=== PATIENT | female | born 1945 | race Caucasian/White ===

== ENCOUNTER 2017-07-12 09:13 | Outpatient (CLI) | payer MEDICARE ==
--- NOTE | 2017-07-17 18:03 | Mammography Report ---
DIGITAL SCREENING MAMMOGRAM: 07/12/2017 CLINICAL INDICATION: A 72-year-old with history of bilateral implants for screening. COMPARISON: 05/2015, 01/2014, 06/2012, 06/2011, 01/2010. TECHNIQUE: Routine CC and MLO projections as well as bilateral implant displaced views were obtained of the breasts. FINDINGS: The breasts again demonstrate scattered fibroglandular densities bilaterally. Bilateral subpectoral saline implants are stable. A few coarse, typically benign calcifications are present. No suspicious masses, clustered microcalcifications, or regions of architectural distortion are identified. IMPRESSION: BENIGN FINDINGS. RECOMMENDATION: Routine annual screening unless otherwise clinically indicated. BI-RADS category 2 benign findings. STANDARD QUALIFYING STATEMENTS 1. This examination was reviewed with the aid of Computed-Aided Detection (CAD). 2. A negative or benign imaging report should not delay biopsy if clinically suspicious findings are present. Consider surgical consultation if warranted. More than 5% of cancers are not identified by imaging. 3. Dense breasts may obscure an underlying neoplasm. TD: 07/17/2017 15:51
== END 2017-07-12 09:14 | disposition home or self-care (01) ==
LOC: DI.S 09:13
PROVIDERS: ATTEND Registered Nurse
DX: Z12.31 Encounter for screening mammogram for malignant neoplasm of breast (principal)
CPT/HCPCS: 77067

== ENCOUNTER 2018-05-16 14:17 | Outpatient (CLI) | payer MEDICARE ==
--- NOTE | 2018-05-16 16:19 | XRAY Report ---
Reason: LOW BACK PAIN Procedure Date: 05/16/2018 Accession Number: [id number] / [id number] Procedure: XR - Lumbar Spine 2 View CPT Code: FULL RESULT: EXAM: LUMBOSACRAL SPINE RADIOGRAPHY EXAM DATE: 05/16/2018 02:31 PM. CLINICAL HISTORY: Low back pain. COMPARISONS: None. TECHNIQUE: 3 views. FINDINGS: Alignment: Normal. No spondylolisthesis or scoliosis. Bones: Five mrn-xrj-xskwwnz lumbar vertebral bodies are present. No lumbar fractures or bone lesions. Mild anterior wedging morphology superior endplate of T11. Disks: Mild disk space narrowing at L4-L5. Small anterior osteophytosis below the L3 level. Facets: No degenerative changes. Sacroiliac Joints: Unremarkable. Soft Tissues: Normal. The visualized bowel gas pattern is normal. IMPRESSION: Mild degenerative disk disease commensurate with age. No acute lumbar fracture. RADIA
== END 2018-05-16 14:18 | disposition home or self-care (01) ==
LOC: DI 14:17
PROVIDERS: ATTEND Registered Nurse
DX: M51.36 Other intervertebral disc degeneration, lumbar region (principal)
CPT/HCPCS: 72100

== ENCOUNTER 2018-08-06 10:55 | Outpatient (CLI) | payer MEDICARE ==
--- NOTE | 2018-08-06 15:04 | DEXA Report ---
Reason: UNSPECIFIED MENOPAUSAL AND PERIMENOPAUSAL DISORDER Procedure Date: 08/06/2018 Accession Number: [id number] / [id number] Procedure: DEX - Dexa Spine and/or Hip CPT Code: FULL RESULT: EXAM: Dexa Spine and/or Hip DATE: 08/06/2018 11:26 AM CLINICAL HISTORY: UNSPECIFIED MENOPAUSAL AND PERIMENOPAUSAL DISORDER TECHNIQUE: Dual energy x-ray absorptiometry (DXA) was performed on a [employer] System. Regions measured are the AP Spine, femoral neck, and if needed forearm. COMPARISON: None. In accordance with the International Society for Clinical Densitometry (ISCD) guidelines, data from previous exams may be reanalyzed using current recommendations and techniques. This is done to allow a more accurate basis for comparison with the current study. FINDINGS: The data for the lumbar spine is as follows: BMD (g/cm/cm) T-SCORE Z-SCORE REGION L1 0.927 -1.7 0.2 L2 0.945 -2.1 -0.2 L3 0.907 -2.4 -0.6 L4 1.088 -0.9 0.9 TOTAL 0.969 -1.8 0.1 NOTE: All evaluable vertebrae are used for classification The data for the hip is as follows: BMD (g/cm/cm) T-SCORE Z-SCORE REGION Neck 0.870 -1.2 0.7 TOTAL 0.753 -2.0 -0.3 NOTE: The femoral neck or total proximal femur, whichever is lowest, is used for classification. IMPRESSION: THE WHO CLASSIFICATION BASED ON THE INTERNATIONAL REFERENCE STANDARD IS OSTEOPENIA. THE FRACTURE RISK IS INCREASED. RECOMMENDATION: Patients with diagnosis of osteoporosis or osteopenia should have regular bone mineral density assessment. For those eligible for Medicare, routine testing is allowed once every 2 years. Testing frequency can be increased for patients who have rapidly progressing disease or for those who are receiving medical therapy to restore bone mass. COMMENT: World Health Organization (WHO) definitions for osteoporosis and osteopenia: NORMAL BMD: T-score at -1.0 or higher, fracture risk is low OSTEOPENIA BMD: T-score between -1.0 and -2.5, fracture risk is increased. OSTEOPOROSIS BMD: T-score at -2.5 or lower, fracture risk is high. National Osteoporosis Foundation recommends: 1. Obtain adequate dietary calcium (at least 1200 mg per day) and vitamin D (400-800 international units per day). 2. Participate, as appropriate, in regular weightbearing and muscle-strengthening exercise. 3. Avoid tobacco use and reduce alcohol and caffeine intake. 4. For more detailed information see the website at www.NOF.org.
== END 2018-08-06 10:56 | disposition home or self-care (01) ==
LOC: DI 10:55
PROVIDERS: ATTEND Registered Nurse
DX: M85.89 Other specified disorders of bone density and structure, multiple sites (principal)
CPT/HCPCS: 77080

== ENCOUNTER 2018-12-05 10:38 | Outpatient (CLI) | payer MEDICARE ==
--- NOTE | 2018-12-06 15:04 | XRAY Report ---
Reason: FOOT PAIN RT M79.671 Procedure Date: 12/05/2018 Accession Number: [id number] / [id number] Procedure: XRS - Foot 3 View RT CPT Code: FULL RESULT: EXAM: RIGHT FOOT RADIOGRAPHY EXAM DATE: 12/05/2018 10:50 AM. CLINICAL HISTORY: FOOT PAIN RT M79. 671. COMPARISON: None. TECHNIQUE: 3 views. FINDINGS: Bones: Small Achilles tendon and plantar heel spurs. No fractures or bone lesions. Joints: First MTP osteophytes, joint space narrowing. Cuneiform metatarsal osteophyte. Soft Tissues: Normal. No soft tissue swelling. IMPRESSION: DJD first metatarsophalangeal joint. RADIA
== END 2018-12-05 10:39 | disposition home or self-care (01) ==
LOC: DI.S 10:38
PROVIDERS: ATTEND Nurse Practitioner Family
DX: M19.071 Primary osteoarthritis, right ankle and foot (principal)

== ENCOUNTER 2019-08-19 13:45 | Outpatient (CLI) | payer MEDICARE ==
--- NOTE | 2019-08-20 10:54 | Mammography Report ---
BILATERAL DIGITAL SCREENING MAMMOGRAM 3D/2D WITH AUGMENTATION: 08/19/2019 CLINICAL: Routine screening. Implants. Comparison is made to exams dated: 07/22/2017 mammogram, 06/23/2015 mammogram, and 01/28/2014 mammogram - [facility]. The tissue of both breasts is heterogeneously dense. This may lower the sensitivity of mammography. Bilateral breast implants are stable and intact. No significant masses, calcifications, or other findings are seen in either breast. There has been no significant interval change. IMPRESSION: NEGATIVE There is no mammographic evidence of malignancy. A 1 year screening mammogram is recommended. This exam was interpreted at Station ID: [id number]. NOTE: For mammograms, a report in lay terms will be sent to the patient. Approximately 15% of breast malignancies will not be visualized mammographically. In the management of a palpable breast mass, a negative mammogram must not discourage biopsy of a clinically suspicious lesion. Electronically Signed By: Domo elizalde/brenda:08/19/2019 17:31:22 ACR BI-RADS Category 1: Negative 3341F PARENCHYMAL PATTERN: (D) - The breast(s) demonstrate(s) heterogeneously dense fibroglandular prema rutledge. BI-RADS CATEGORY: (1) - 1 RECOMMENDATION: (ANNUAL) - Recommend routine annual screening mammography. [id number] 1 year screening LATERALITY: (B)
== END 2019-08-19 13:46 | disposition home or self-care (01) ==
LOC: DI 13:45
PROVIDERS: ATTEND Registered Nurse
DX: Z12.31 Encounter for screening mammogram for malignant neoplasm of breast (principal)
CPT/HCPCS: 77063; 77067

== ENCOUNTER 2020-10-18 14:09 | Outpatient (CLI) | payer MEDICARE ==
--- NOTE | 2020-10-19 16:09 | Mammography Report ---
BILATERAL DIGITAL SCREENING MAMMOGRAM 3D/2D WITH AUGMENTATION: 10/18/2020 CLINICAL: Routine screening. Comparison is made to exams dated: 08/19/2019 mammogram, 07/22/2017 mammogram, 06/23/2015 mammogram, mammogram, and 07/25/2012 mammogram - [facility]. There are scattered fibro glandular elements in both breasts. Bilateral breast implants are stable and intact. No significant masses, calcifications, or other findings are seen in either breast. There has been no significant interval change. IMPRESSION: NEGATIVE There is no mammographic evidence of malignancy. A 1 year screening mammogram is recommended. This exam was interpreted at Station ID: [id number]. NOTE: For mammograms, a report in lay terms will be sent to the patient. Approximately 15% of breast malignancies will not be visualized mammographically. In the management of a palpable breast mass, a negative mammogram must not discourage biopsy of a clinically suspicious lesion. Electronically Signed By: Pallavi awad/brenda:10/18/2020 15:04:03 ACR BI-RADS Category 1: Negative 3341F PARENCHYMAL PATTERN: (A) - The breast(s) demonstrate(s) scattered fibroglandular densities. BI-RADS CATEGORY: (1) - 1 RECOMMENDATION: (ANNUAL) - Recommend routine annual screening mammography. [id number] 1 year screening LATERALITY: (B)
== END 2020-10-18 14:10 | disposition home or self-care (01) ==
LOC: DI 14:09
PROVIDERS: ATTEND Registered Nurse
DX: Z12.31 Encounter for screening mammogram for malignant neoplasm of breast (principal); Z98.82 Breast implant status

== ENCOUNTER 2020-10-18 14:10 | Outpatient (CLI) | payer MEDICARE ==
--- NOTE | 2020-10-18 15:07 | DEXA Report ---
PROCEDURE: Dexa Spine and/or Hip INDICATIONS: OSTEOPENIA TECHNIQUE: Dual energy x-ray absorptiometry (DXA) was performed on a [employer] System. Regions measur ed are the AP Spine, femoral neck, and if needed forearm. COMPARISON: Prior similar study dated 08/06/2018 reviewed.. FINDINGS: Lumbar Spine: Bone Mineral Density 1.0-4 g/cm/cm,T score -1.3, osteopenia, and this represents a 5.7% statistica lly significant improvement in bone mineral density from July 2018. Left Hip: Bone Mineral Density 0.783 g/cm/cm,T score -1.8, osteopenia, but this represents a statistically ins ignificant increase in bone mineral density at the left hip region overall of 4%. Left Femoral Neck: Bone Mineral Density 0.841 g/cm/cm, T score -1.4, osteopenia (T score greater or equal to -1.0: NORMAL) (T score from -1.1 to -2.4: OSTEOPENIA) (T score less than or equal to -2.5 to: OSTEOPOROSIS) Impression: There is osteopenia at the lumbosacral spine overall in the left hip region overall, and at the left femoral neck and targeted imaging. There has been a statistically significant improvement in bone mineral density at the lumbosacral spine overall of 5.7% and also improvement at the left hi p which is not statistically significant a 4% increase in bone mineral density. Patients with diagnosis of osteoporosis or osteopenia should have regular bone mineral density assess ment. For those eligible for Medicare, routine testing is allowed once every 2 years. Testing frequ ency can be increased for patients who have rapidly progressing disease or for those who are receivin g medical therapy to restore bone mass. Reviewed by: Silvano Granados MD on 10/18/2020 3:06 PM PDT Approved by: Silvano Granados MD on 10/18/2020 3:06 PM PDT Station ID: [id number]
== END 2020-10-18 14:11 | disposition home or self-care (01) ==
LOC: DI 14:10
PROVIDERS: ATTEND Registered Nurse
DX: M85.89 Other specified disorders of bone density and structure, multiple sites (principal)

== ENCOUNTER 2022-06-21 09:04 | Outpatient (CLI) | payer MEDICARE ==
--- NOTE | 2022-06-22 10:10 | Mammography Report ---
BILATERAL DIGITAL SCREENING MAMMOGRAM 3D/2D WITH AUGMENTATION: 06/21/2022 CLINICAL: Routine screening. Family history of breast cancer. Comparison is made to exams dated: 10/18/2020 mammogram, 08/19/2019 mammogram, 07/22/2017 mammogram, an d 06/23/2015 mammogram - [facility]. There are scattered areas of fibroglandular density in both breasts (category b / 25%-50% glandular t issue). Bilateral breast implants are stable and intact. No significant masses, calcifications, or other findings are seen in either breast. There has been no significant interval change. IMPRESSION: NEGATIVE There is no mammographic evidence of malignancy. A 1 year screening mammogram is recommended. Based on the Tyrer Cuzick model (a risk assessment model) the patients lifetime risk is 7.0% and her 10 year risk is 0.0%. According to the ACR, ACS, and NCCN guidelines, an annual breast MRI exam zeus g with mammogram is recommended if the patients lifetime risk is 20% or greater. This exam was interpreted at Station ID: [id number]. NOTE: For mammograms, a report in lay terms will be sent to the patient. Approximately 15% of breast malignancies will not be visualized mammographically. In the management of a palpable breast mass, a negative mammogram must not discourage biopsy of a clinically suspicious lesion. Electronically Signed By: Darrell alejo/brenda:06/21/2022 10:49:45 letter sent: No_Letter ACR BI-RADS Category 1: Negative 3341F PARENCHYMAL PATTERN: (A) - The breast(s) demonstrate(s) scattered fibroglandular densities. BI-RADS CATEGORY: (1) - 1 Mammogram [id number] 1 year screening LATERALITY: (B)
== END 2022-06-21 09:05 | disposition home or self-care (01) ==
LOC: DI.S 09:04
PROVIDERS: ATTEND Registered Nurse
DX: Z12.31 Encounter for screening mammogram for malignant neoplasm of breast (principal); Z80.3 Family history of malignant neoplasm of breast

== ENCOUNTER 2023-04-24 08:00 | Outpatient (CLI) | payer MEDICARE | END 2023-04-24 23:59 | disposition home or self-care (01) | LOC: LAB.S 08:00 | PROVIDERS: ATTEND Emergency Medicine | DX: L72.3 Sebaceous cyst (principal) | CPT/HCPCS: 87070; 87205 ==

== ENCOUNTER 2023-08-08 08:00 | Outpatient (CLI) | payer MEDICARE ==
--- NOTE | 2023-08-08 15:22 | XRAY Report ---
PROCEDURE: Shoulder 2+V RT INDICATIONS: PAIN IN RIGHT SHOULDER TECHNIQUE: 3 views of the shoulder were acquired. COMPARISON: None. FINDINGS: Bones: No fractures or dislocations. No suspicious bony lesions. Visualized ribs appear intact. Glenohumeral and acromioclavicular joint space narrowing with associated osteophytosis. Soft tissues: No suspicious soft tissue calcifications. The visualized lungs are within normal limi ts. IMPRESSION: No acute bony abnormality. Mild glenohumeral and moderate acromioclavicular osteoarthritis. Reviewed by: Hesham Martins MD on 08/08/2023 3:21 PM PDT Approved by: Hesham Martins MD on 08/08/2023 3:21 PM PDT Station ID: [id number]
== END 2023-08-08 23:59 | disposition home or self-care (01) ==
LOC: DI.S 08:00
PROVIDERS: ATTEND Registered Nurse
DX: M19.011 Primary osteoarthritis, right shoulder (principal)

== ENCOUNTER 2023-10-25 08:00 | Outpatient (CLI) | payer MEDICARE ==
--- NOTE | 2023-10-25 13:03 | XRAY Report ---
PROCEDURE: Elbow 3+V LT INDICATIONS: LEFT ELBOW INJURY TECHNIQUE: 4 views of the elbow were acquired. COMPARISON: None. FINDINGS: Bones: There is a comminuted supracondylar fracture with intra-articular extension involving the lef t humerus. Associated with this is a large elbow joint effusion. I do not see evidence for dislocatio n. IMPRESSION: 1. Markedly comminuted intra-articular supracondylar fracture left humerus. 2. Large elbow joint effusion. Reviewed by: Kei Enciso MD on 10/25/2023 1:02 PM PDT Approved by: Kei Enciso MD on 10/25/2023 1:02 PM PDT Station ID: [id number]
== END 2023-10-25 23:59 | disposition home or self-care (01) ==
LOC: DI.S 08:00
PROVIDERS: ATTEND Emergency Medicine
DX: S42.422A Displaced comminuted supracondylar fracture without intercondylar fracture of left humerus, initial encounter for closed fracture (principal)